=== PATIENT | male | born 1960 | race Two or more races ===

== ENCOUNTER 2017-02-20 10:58 | Emergency (ER) | payer OTHER ==
[~2017-02-20] VITALS: Ht 162.6 cm; Wt 76.0 kg
[2017-02-20 11:03] VITALS: Ht 162.6 cm; Wt 76.0 kg
--- NOTE | 2017-02-20 12:56 | RADRPT ---
PROCEDURE: XR Chest. CLINICAL INDICATION: Chest pain. TECHNIQUE: Single frontal view of the chest was obtained. COMPARISON: Chest x-ray 04/22/2015. FINDINGS: The soft tissues are normal. The bony elements are normal. The heart, cardiomediastinal silhouette and hilar structures are normal. The pulmonary vasculature is normal. There is a left-sided aorta. The lungs are clear. The costophrenic angles are normal. IMPRESSION: 1. Stable chest x-ray with no evidence of active cardiopulmonary disease. RPTAT:AAJJ Physician Marcus Date Time Electronically viewed and signed by Physician Marcus on 02/20/2017 12:55 /
[2017-02-20 13:22] LABS: ADD SCAN DIFF NO
[2017-02-20 13:44] LABS: ANION GAP 11 (8-16); BLOOD UREA NITROGEN 5 mg/dl (7-20); CALCIUM 8.4 mg/dl (8.4-10.2); CARBON DIOXIDE 25 mmol/L (21-31); CHLORIDE 106 mmol/L (97-110); CREATININE 0.59 mg/dl (0.61-1.24); GLUCOSE 93 mg/dl (70-220); POTASSIUM 3.7 mmol/L (3.5-5.1); SODIUM 138 mmol/L (135-144)
[2017-02-20 13:55] LABS: INR 1.16; PROTIME 14.8 Sec (12.2-14.2); PT RATIO 1.2
[2017-02-20 13:56] LABS: B-TYPE NATRIURETIC PEPTIDE 307 PG/ML (0-125); PARTIAL THROMBOPLASTIN TIME 30.2 Sec (25.0-35.0)
[2017-02-20 14:01] LABS: TROPONIN-I < 0.012 ng/ml (0.00-0.12)
[2017-02-20 14:27] LABS: ABNORMAL IP MESSAGE 1; HEMATOCRIT 16.3 % (42.0-52.0); MEAN CORPUSCULAR HEMOGLOBIN 19.1 pg (29.0-33.0); MEAN CORPUSCULAR VOLUME 70.9 fl (82.0-101.0); MEAN PLATELET VOLUME 9.9 fl (7.4-10.4); PLATELET COUNT 203 10^3/UL (140-415); RED CELL DISTRIBUTION WIDTH 19.6 % (11.5-14.5)
[2017-02-20 14:32] LABS: HEMOGLOBIN 4.4 g/dl (14.0-18.0)
[2017-02-20 15:05] LABS: ALBUMIN 3.8 g/dl (3.3-4.9); BILIRUBIN,INDIRECT 0.1 mg/dl (0-1.1); BILIRUBIN,TOTAL 0.1 mg/dl (0.2-1.3); TOTAL PROTEIN 6.3 g/dl (6.1-8.1)
[2017-02-20 15:20] LABS: ANISOCYTOSIS 1+; EOSINOPHILS # 0.1 10^3/ul (0.0-0.5); HYPOCHROMASIA 3+; MONOCYTE # 0.3 10^3/ul (0.3-0.9); NEUTROPHIL # 2.9 10^3/ul (1.6-7.5)
[2017-02-20 17:54] LABS: THYROID STIMULATING HORMONE 0.954 MIU/L (0.465-4.680)
--- NOTE | 2017-02-20 20:08 | ERA ---
ER Documentation Chief Complaint Date/Time DATE: 02/20/17 TIME: 20:04 Chief Complaint swelling feet x 2mos HPI 56-year-old male patient with a past medical history of pseudo-endo- cholinesterase disorder and hemorrhoids presents to the ED complaining of bilateral swelling of his legs and was sent here by Dr. Boone for further evaluation. Patient states that this has been going on for 1 month. Reports that he has had intermittent pitting edema of bilateral feet/ankles. States that it is better when he elevates his feet at night upon pillows. Reports that it is worse when he standing and walking. Reports a couple weeks prior to this incident he has had loss of equilibrium and slight lightheadedness. Denies any chest pain, shortness of breath, wheezing, orthopnea, dyspnea on exertion, abdominal pain, nausea, vomiting, diarrhea. ROS All systems reviewed and are negative except as per history of present illness. Medications Home Meds No Active Prescriptions or Reported Meds Allergies Allergies: Uncoded Allergies: PSEDOCHOLINESTEROSE (Allergy, Severe, FAMILY ALLERGY, 04/22/15) PMhx/Soc History of Surgery: Yes (T&A.APPY/) Anesthesia Reaction: No Hx Neurological Disorder: No Hx Respiratory Disorders: No Hx Cardiac Disorders: No Hx Psychiatric Problems: No Hx Miscellaneous Medical Probl: No Hx Alcohol Use: Yes (4 X /WEEK) Hx Substance Use: No Hx Tobacco Use: Yes Smoking Status: Never smoker Physical Exam Vitals Vital Signs Date Time Temp Pulse Resp B/P Pulse Ox O2 Delivery O2 Flow Rate FiO2 02/20/17 21:20 98.6 88 18 127/69 100 Room Air 02/20/17 20:05 98.9 89 20 142/89 100 Room Air 02/20/17 18:30 98.1 79 18 119/74 98 Room Air 02/20/17 17:42 98.0 91 18 117/71 99 Room Air 02/20/17 15:03 98.0 93 18 123/67 98 Room Air 02/20/17 11:03 98.1 90 18 105/56 99 Physical Exam Const: Rib-pvj-akylityeq, well-nourished. In no acute distress. Head: Atraumatic, normocephalic Eyes: Normal Conjunctiva without injection. No purulent discharge. ENT: Normal external ear, nose. Moist oropharynx without tonsillar exudates. Non -erythematous pharynx. Uvula midline. No drooling. No trismus. Neck: No cervical midline tenderness. Full range of motion. No meningismus. No cervical lymphadenopathy. No JVD. Resp: Clear to auscultation bilaterally. No wheezing, rhonchi, rales, or crackles. No accessory muscle use. No retractions. Cardio: Regular rate and rhythm. No murmurs, rubs or gallops. Abd: Soft, nontender, non distended. Normal bowel sounds. No palpable masses. No rebound tenderness. No guarding. Negative McBurney's point. Negative psoas sign. Negative obturator sign. Skin: No petechiae or rashes Back: No midline tenderness. No CVA tenderness. Ext: No cyanosis. 2+ pitting edema noted bilaterally. No warmth to touch. No erythema noted. Neurovascularly intact. Neur: Awake and alert. Normal gait. Normal coordination. Psych: Normal Mood and Affect Result Diagram: 02/20/17 1415 02/20/17 1305 Results 24 hrs Laboratory Tests Test 02/20/17 13:05 02/20/17 14:15 02/21/17 09:32 Prothrombin Time 14.8Sec Prothrombin Time Ratio 1.2 INR International Normalized Ratio 1.16 Activated Partial Thromboplast Time 30.2Sec Sodium Level 138mmol/L Potassium Level 3.7mmol/L Chloride Level 106mmol/L Carbon Dioxide Level 25mmol/L Anion Gap 11 Blood Urea Nitrogen 5mg/dl Creatinine 0.59mg/dl Glucose Level 93mg/dl Calcium Level 8.4mg/dl Troponin I < 0.012ng/ml B-Type Natriuretic Peptide 307PG/ML White Blood Count 5.310^3/ul Red Blood Count 2.3010^6/ul Hemoglobin 4.4g/dl Hematocrit 16.3% Mean Corpuscular Volume 70.9fl Mean Corpuscular Hemoglobin 19.1pg Mean Corpuscular Hemoglobin Concent 27.0g/dl Red Cell Distribution Width 19.6% Platelet Count 22113^3/UL Mean Platelet Volume 9.9fl Neutrophils % 55.0% Lymphocytes % 37.0% Monocytes % 6.0% Eosinophils % 2.0% Neutrophils # 2.910^3/ul Lymphocytes # 2.010^3/ul Monocytes # 0.310^3/ul Eosinophils # 0.110^3/ul Hypochromasia 3+ Anisocytosis 1+ Total Bilirubin 0.1mg/dl Direct Bilirubin 0.00mg/dl Indirect Bilirubin 0.1mg/dl Aspartate Amino Transf (AST/SGOT) 45IU/L Alanine Aminotransferase (ALT/SGPT) 39IU/L Alkaline Phosphatase 74IU/L Total Protein 6.3g/dl Albumin 3.8g/dl Lipase 115U/L Thyroid Stimulating Hormone (TSH) 0.954MIU/L Lab Scanned Report BLOOD [id number] Procedures/MDM This is a 56-year-old male patient with a past medical history of pseudo-endo- cholinesterase disorder and hemorrhoids presents to the ED complaining of bilateral feet swelling and lightheadedness. Patient is afebrile and nontoxic- appearing. Patient has normal vital signs. Patient was further worked up with CBC, CMP, lipase, UA, BNP, troponin, EKG, CXR. CBC: No leukocytosis. No e/o of systemic infection. Hbg 4.4. This case was discussed with my supervising physician, Dr. Gonzalez who stated that patient can receive 3 units of packed red blood cells. CMP: No e/o severe acidosis, alkalosis, renal failure, diabetic ketoacidosis, liver disease Lipase within normal limits. Urine: No leukocyte esterase, no nitrites, no hematuria. Troponin is less than 0.012. BNP is 302. TSH 0.954 Chest x-ray is unremarkable for any cardio pulmonary diseases. EKG reviewed and interpreted by Dr. Gonzalez Rate/Rhythm: [Normal Sinus Rhythm] No ectopy, no ST elevations, normal axis. QRS, ST, T-waves: [No changes consistent w/ acute ischemia] Impression: [No evidence of ischemia or arrhythmia] Low suspicion for acute myocardial infarction, pneumothorax, pneumonia, cardiac tamponade, pulmonary embolism, AAA, aortic dissection, Boerhaave's syndrome, cardiac dysrhythmias,meningitis, intracranial bleed, seizure, stroke, TIA or other emergent conditions. This time when patient and daughter was told that patient had a hemoglobin of 4.4, daughter responded that patient had some dark stools intermittently for 2 weeks but stated that they are unsure if it is from the hemorrhoids. Patient will now be under the care of Dr. Gonzalez for further evaluation and treatment. Patient is awaiting for transfer to [facility]. Patient is hemodynamically stable. Departure Diagnosis: Primary Impression: Bilateral swelling of feet and ankles Additional Impression: Anemia Qualified Code: D64.9 - Anemia, unspecified type Condition: CHARLOTTE Weems PA-C Feb 20, 2017 20:08
--- NOTE | 2017-02-20 20:40 | QN ---
Documentation Comment The patient is a 56-year-old male, presenting to the ER because of lower extremity edema and generalized weakness for the last week. He had history of hemorrhoids. He has been standing a lot at work. He was seen by his physician a week ago. He denies syncope, near syncope, neck pain, chest pain, abdominal pain, vomiting, dysuria, diarrhea, polyuria and of bloody stool. He does not smoke or drink He was seen in ED 2 then sent to ED 1 for evaluation He was found to be severe anemia.. He was transfused 3 units of packed red blood cell ER. The etiology of severe anemia most likely due to hemorrhoids and /or gastrointestinal bleeding. He was recommended to be admitted to the hospital for further evaluation The differential diagnoses considered include but are not limited to gastritis, peptic ulcer disease, esophageal varices, Darleen-Walton tear, carcinoma, polyp , hemorrhoid, fissure, diverticulosis, angiodysplasia. I discussed the patient with the on-call physician Dr Orosco for his IPA, who accepted the patient to [facility] 6:30 PM Impression: Acute severe anemia Disposition: The patient declined admission The patient signed out AGAINST MEDICAL ADVICE. Risks, benefits, alternatives were explained to the patient. Risks include but not limited to and permanent disability. He was advised to see his physician immediately tomorrow for immediate referral to see gastroenterology NO CISNEROS MD Feb 20, 2017 20:40
[2017-02-20 21:20] VITALS: BP 127/69; PULSE 88; RESP 18; TEMP 98.6
[2017-02-22 14:08] LABS: WHITE BLOOD COUNT 5.3 10^3/ul (4.8-10.8)
== END 2017-02-20 21:22 | disposition left against medical advice (07) ==
LOC: FTE 10:58 → E/R 21:22
DX: M79.89 Other specified soft tissue disorders (principal); D64.9 Anemia, unspecified; R07.9 Chest pain, unspecified; Z87.891 Personal history of nicotine dependence
CPT/HCPCS: 36430; 71010; 80048; 80076; 83690; 83880; 84443; 84484; 85025; 85610; 85730; 86644; 86850; 86900; 86901; 86920; 93005; P9016; 36415

== ENCOUNTER 2017-06-03 23:34 | Emergency (ER) | payer OTHER ==
[~2017-06-03] VITALS: Ht 180.3 cm; Wt 67.5 kg
[2017-06-03 23:52] VITALS: Ht 180.3 cm; Wt 67.5 kg
[2017-06-04] MEDS ORDERED: PANTOPRAZOLE 40 MG INJ IV ONE (00:30)
--- NOTE | 2017-06-04 00:37 | ERA ---
ER Documentation Chief Complaint Date/Time DATE: 06/04/17 TIME: 00:35 Chief Complaint 2+ TBS GRAY BLOOD NOTED EVERY OTHER BM X 4 DAYS, MILDLY PALE & TIRED HPI Patient is a 56-year-old male who presents with rectal bleeding for 3 days. He reports having dark tarry stools for 3 days starting 8 days ago, but they resolved. 3 days ago he started having bloody stool without dark stools. He denies abdominal pain. He denies vomiting. He denies fever. The patient reports a history of GI bleed due to gastritis 3 months ago. He had an upper and lower endoscopy. He is currently taking ferrous sulfate. In April, his hemoglobin was 11. He drinks 6-7 drinks daily, but denies history of cirrhosis. He reports having chronic mild lower extremity edema. ROS All systems reviewed and are negative except as per history of present illness. Medications Home Meds Active Scripts Omeprazole* (Omeprazole*) 20 Mg Capsule., 20 MG PO DAILY, #14 CAP Prov:SAJI LOAIZA MD 06/04/17 Allergies Allergies: Uncoded Allergies: PSEDOCHOLINESTEROSE (Allergy, Severe, FAMILY ALLERGY, 04/22/15) PMhx/Soc Past medical history: Gastritis Past surgical history: Denies Social history: Drinks 6-7 drinks daily, no drugs, smokes cigarettes. History of Surgery: Yes (T&A.APPY/) Anesthesia Reaction: No Hx Neurological Disorder: No Hx Respiratory Disorders: No Hx Cardiac Disorders: No Hx Psychiatric Problems: No Hx Miscellaneous Medical Probl: No Hx Alcohol Use: Yes (4 X /WEEK) Hx Substance Use: No Hx Tobacco Use: Yes Smoking Status: Current every day smoker FmHx Family History: No coronary disease, No diabetes Physical Exam Vitals Vital Signs Date Time Temp Pulse Resp B/P Pulse Ox O2 Delivery O2 Flow Rate FiO2 06/04/17 02:30 97 18 108/68 100 Room Air 06/04/17 01:37 97 18 110/71 100 Room Air 06/03/17 23:52 98.1 102 18 106/71 100 Physical Exam Const: Alert, no acute distress Head: Atraumatic Eyes: Normal Conjunctiva, No pallor, no icterus ENT: Normal External Ears, Nose and Mouth.Mucous membranes moist Neck: Full range of motion..~ No meningismus. Resp: Clear to auscultation bilaterally, No wheezes, no rales Cardio: Regular rate and rhythm, no murmurs Abd: Soft, non tender, non distended. Normal bowel sounds Skin: No petechiae or rashes Back: No midline or flank tenderness Ext: No cyanosis,1+ edema to bilateral shins. Neur: Awake and alert Psych: Normal Mood and Affect Result Diagram: 06/04/17 0005 06/04/17 0005 Results 24 hrs Laboratory Tests Test 06/04/17 00:05 White Blood Count 7.810^3/ul Red Blood Count 4.3810^6/ul Hemoglobin 13.4g/dl Hematocrit 40.5% Mean Corpuscular Volume 92.5fl Mean Corpuscular Hemoglobin 30.6pg Mean Corpuscular Hemoglobin Concent 33.1g/dl Red Cell Distribution Width 17.4% Platelet Count 95156^3/UL Mean Platelet Volume 10.4fl Neutrophils % 49.0% Lymphocytes % 35.8% Monocytes % 11.3% Eosinophils % 2.6% Basophils % 0.9% Nucleated Red Blood Cells % 0.0/100WBC Neutrophils # 3.810^3/ul Lymphocytes # 2.810^3/ul Monocytes # 0.910^3/ul Eosinophils # 0.210^3/ul Basophils # 0.110^3/ul Nucleated Red Blood Cells # 0.010^3/ul Prothrombin Time 12.5Sec Prothrombin Time Ratio 1.0 INR International Normalized Ratio 0.93 Activated Partial Thromboplast Time 29.0Sec Sodium Level 142mmol/L Potassium Level 4.1mmol/L Chloride Level 109mmol/L Carbon Dioxide Level 28mmol/L Anion Gap 9 Blood Urea Nitrogen 6mg/dl Creatinine 0.57mg/dl Glucose Level 107mg/dl Calcium Level 8.3mg/dl Total Bilirubin 0.0mg/dl Direct Bilirubin 0.00mg/dl Indirect Bilirubin 0.0mg/dl Aspartate Amino Transf (AST/SGOT) 39IU/L Alanine Aminotransferase (ALT/SGPT) 38IU/L Alkaline Phosphatase 169IU/L Total Protein 6.3g/dl Albumin 2.7g/dl Globulin 3.60g/dl Albumin/Globulin Ratio 0.75 Current Medications Medications (Trade) Dose Ordered Sig/Osiel Route PRN Reason Start Time Stop Time Status Last Admin Dose Admin Pantoprazole (Protonix Iv) 40 mg ONCE ONCE IV 06/04/17 00:30 06/04/17 00:31 DC 06/04/17 00:30 Procedures/MDM EKG read by me: Time 0052, rate 99 Rhythm: Normal sinus [place]: Normal Intervals: Normal ST-T waves: T-wave flattening, no ischemic changes Ectopy: No Q-waves: No Impression: No evidence of ischemia or arrhythmia MDM: Patient is a 56-year-old male who presents with 1 week of rectal bleeding intermittently. He states that he sees a few ounces teaspoons of blood in the toilet after defecating. Symptoms are intermittent. He does report having black stools earlier in the week but this is resolved. Patient has history of gastritis with GI bleed. His hemoglobin is essentially normal and increased from prior in April. The patient denies history of cirrhosis, but has significant alcohol use and a low albumin. I suspect that he has underlying cirrhosis and may be having bleeding due to hemorrhoids. He has no evidence of coagulopathy. I advised him to follow-up with his PMD in the next 2-3 days for hemoglobin recheck and to return to the ER for large volume of bloody stool or for dark stools. He will need further GI and colorectal workup as an outpatient. I will prescribe him a two-week course of omeprazole in case of an element of gastritis. I counseled him on alcohol abstention. The patient denied feeling any lesions on the external anus, and given his history I did not feel that rectal exam was would contribute significantly to medical decision -making. Departure Diagnosis: Primary Impression: Rectal bleeding Additional Impression: Hypoalbuminemia Condition: SAJI Kruger MD Jun 04, 2017 00:37
[2017-06-04 00:41] LABS: BASOPHIL # 0.1 10^3/ul (0.0-0.1); BASOPHILS % 0.9 % (0.0-2.0); EOSINOPHILS # 0.2 10^3/ul (0.0-0.5); EOSINOPHILS % 2.6 % (0.0-7.0); HEMATOCRIT 40.5 % (42.0-52.0); HEMOGLOBIN 13.4 g/dl (14.0-18.0); LYMPHOCYTES # 2.8 10^3/ul (0.8-2.9); LYMPHOCYTES % 35.8 % (15.0-51.0); MEAN CORPUSCULAR HEMOGLOBIN 30.6 pg (29.0-33.0); MEAN CORPUSCULAR HGB CONC 33.1 g/dl (32.0-37.0); MEAN CORPUSCULAR VOLUME 92.5 fl (82.0-101.0); MEAN PLATELET VOLUME 10.4 fl (7.4-10.4); MONOCYTE # 0.9 10^3/ul (0.3-0.9); MONOCYTES % 11.3 % (0.0-11.0); NEUTROPHIL # 3.8 10^3/ul (1.6-7.5); PLATELET COUNT 265 10^3/UL (140-415); RED BLOOD COUNT 4.38 10^6/ul (4.70-6.10); RED CELL DISTRIBUTION WIDTH 17.4 % (11.5-14.5); WHITE BLOOD COUNT 7.8 10^3/ul (4.8-10.8)
[2017-06-04 00:51] LABS: INR 0.93; PROTIME 12.5 Sec (12.2-14.2)
[2017-06-04 00:58] LABS: ALBUMIN 2.7 g/dl (3.3-4.9); ALBUMIN/GLOBULIN RATIO 0.75; CALCIUM 8.3 mg/dl (8.4-10.2); CREATININE 0.57 mg/dl (0.61-1.24); POTASSIUM 4.1 mmol/L (3.5-5.1); TOTAL PROTEIN 6.3 g/dl (6.1-8.1)
[2017-06-04] MEDS ORDERED: OMEP20CA16 PO (01:37)
[2017-06-04 02:30] VITALS: BP 108/68; PULSE 97; RESP 18
== END 2017-06-04 02:32 | disposition home or self-care (01) ==
LOC: E/R 23:34
DX: K62.5 Hemorrhage of anus and rectum (principal); R77.0 Abnormality of albumin; F17.210 Nicotine dependence, cigarettes, uncomplicated; R00.2 Palpitations
CPT/HCPCS: 36415; 80053; 85025; 85610; 85730; 86850; 86900; 86901; 93005; 96374; C9113; Z7502

== ENCOUNTER 2017-08-01 16:26 | Emergency (ER) | payer OTHER ==
[~2017-08-01] VITALS: Wt 60.0 kg
[~2017-08-01 16:26] MED LIST: OMEP20CA16 PO
[2017-08-01 16:38] VITALS: Wt 60.0 kg
[2017-08-01] MEDS ORDERED: SODIUM CHLORIDE 0.9% 1L BAG IV* STA (16:47)
--- NOTE | 2017-08-01 17:11 | RADRPT ---
PROCEDURE: XR Chest. CLINICAL INDICATION: Shortness of breath. TECHNIQUE: Single frontal view. COMPARISON: 02/20/2017. FINDINGS: The lungs are clear. The heart size is normal. There is no pleural effusion. There is no pneumothorax. IMPRESSION: 1. Normal chest radiograph. 2. No change from 02/20/2017. RPTAT: QQ .Vasquez Turner MD, MD Date Time Electronically viewed and signed by .Vasquez Turner MD, MD on 08/01/2017 17:11 .R/
[2017-08-01 17:16] LABS: BASOPHIL # 0.1 10^3/ul (0.0-0.1); BASOPHILS % 0.5 % (0.0-2.0); EOSINOPHILS % 0.3 % (0.0-7.0); HEMATOCRIT 36.2 % (42.0-52.0); HEMOGLOBIN 13.2 g/dl (14.0-18.0); LYMPHOCYTES # 1.7 10^3/ul (0.8-2.9); MEAN CORPUSCULAR HEMOGLOBIN 34.1 pg (29.0-33.0); MEAN CORPUSCULAR HGB CONC 36.5 g/dl (32.0-37.0); MEAN CORPUSCULAR VOLUME 93.5 fl (82.0-101.0); MEAN PLATELET VOLUME 11.3 fl (7.4-10.4); MONOCYTE # 0.8 10^3/ul (0.3-0.9); MONOCYTES % 7.6 % (0.0-11.0); NEUTROPHIL # 8.1 10^3/ul (1.6-7.5); PLATELET COUNT 178 10^3/UL (140-415); RED BLOOD COUNT 3.87 10^6/ul (4.70-6.10); RED CELL DISTRIBUTION WIDTH 13.4 % (11.5-14.5); WHITE BLOOD COUNT 10.9 10^3/ul (4.8-10.8)
[2017-08-01 17:35] LABS: ALANINE AMINOTRANSFERASE 96 IU/L (13-69); ALBUMIN/GLOBULIN RATIO 0.76; ALKALINE PHOSPHATASE 283 IU/L (42-121); ANION GAP 16 (8-16); ASPARTATE AMINO TRANSFERASE 166 IU/L (15-46); BILIRUBIN,INDIRECT 0.8 mg/dl (0-1.1); BLOOD UREA NITROGEN 7 mg/dl (7-20); CALCIUM 7.4 mg/dl (8.4-10.2); CARBON DIOXIDE 27 mmol/L (21-31); CHLORIDE 87 mmol/L (97-110); GLUCOSE 100 mg/dl (70-220); SODIUM 127 mmol/L (135-144); TOTAL PROTEIN 6.9 g/dl (6.1-8.1)
[2017-08-01 17:38] LABS: INR 1.11; PROTIME 14.3 Sec (12.2-14.2); PT RATIO 1.1
[2017-08-01 17:39] LABS: PARTIAL THROMBOPLASTIN TIME 31.8 Sec (25.0-35.0)
[2017-08-01 17:44] LABS: POTASSIUM 2.5 mmol/L (3.5-5.1)
[2017-08-01 17:46] LABS: TROPONIN-I < 0.012 ng/ml (0.00-0.12)
[2017-08-01] MEDS ORDERED: ONDANSETRON 4 MG INJ IV STA (17:57)
[2017-08-01] MEDS ORDERED: POTASSIUM CHLORIDE (SR) 20 MEQ TAB PO STA (17:58)
--- NOTE | 2017-08-01 18:23 | RADRPT ---
PROCEDURE: Right upper quadrant ultrasound CLINICAL INDICATION: Abnormal liver function TECHNIQUE: Multiple real-time images were acquired of the patient's abdomen and right retroperiton eum utilizing a high resolution transducer. COMPARISON: None FINDINGS: The liver is increased in echogenicity and measures 20.1 cm. No focal hepatic masses are seen. The gallbladder is physiologically distended. There is no evidence of gallstones, gallbladder wall thi ckening, or pericholecystic fluid. The intra and extrahepatic bile ducts are normal in caliber. Th e common bile duct measures 3.6 mm. Midline images demonstrate the pancreas head to be normal in echogenicity without obvious inflammato ry change. The body and tail are suboptimally seen. Survey views of the right kidney demonstrate no evidence of hydronephrosis or renal calculi. The ri ght kidney measures 10.9 cm. IMPRESSION: 1. No evidence of cholelithiasis or acute cholecystitis. 2. No biliary duct dilatation. 3. Fatty liver. 4. Hepatomegaly RPTAT: HH .Jono Nina MD, Date Time Electronically viewed and signed by .Jono Nina MD, on 08/01/2017 18:23 .W/
--- NOTE | 2017-08-01 18:33 | ERD ---
ER Documentation Chief Complaint Chief Complaint lightheadedness, fatigue, weakness, hypotension HPI Over the last several days this 57-year-old male is been feeling increasingly lightheaded and weak with fatigue. Checked his blood pressure at home he was significantly hypotensive with a systolic in the 70s. He also has had nausea and has been dry heaving. States that a couple times some water like fluid came out. Denies any pain in any part of his body. Does not have shortness of breath. ROS All systems reviewed and are negative except as per history of present illness. Medications Home Meds Active Scripts Omeprazole* (Omeprazole*) 20 Mg Capsule., 20 MG PO DAILY, #14 CAP Prov:SAJI LOAIZA MD 06/04/17 Allergies Allergies: Uncoded Allergies: PSEDOCHOLINESTEROSE (Allergy, Severe, FAMILY ALLERGY, 04/22/15) PMhx/Soc History of Surgery: Yes (T&A.APPY/) Anesthesia Reaction: No Hx Neurological Disorder: No Hx Respiratory Disorders: No Hx Cardiac Disorders: No Hx Psychiatric Problems: No Hx Miscellaneous Medical Probl: No Hx Alcohol Use: Yes (4 X /WEEK) Hx Substance Use: No Hx Tobacco Use: Yes Smoking Status: Never smoker Physical Exam Vitals Vital Signs Date Time Temp Pulse Resp B/P Pulse Ox O2 Delivery O2 Flow Rate FiO2 08/01/17 20:16 95 16 100/69 98 Room Air 08/01/17 17:01 Nasal Cannula 2 08/01/17 16:38 98.3 96 20 85/65 97 Physical Exam Const: [] Distress, appears uncomfortable Head: Atraumatic Eyes: Normal Conjunctiva EOMI, PERRLA ENT: Normal External Ears, Nose and Mouth. Neck: Full range of motion..~ No meningismus. Resp: Clear to auscultation bilaterally Cardio: Regular rate and rhythm, no murmurs Abd: Soft, non tender, non distended. Normal bowel sounds Skin: No petechiae or rashes Back: No midline or flank tenderness Ext: No cyanosis, or edema distal pulses intact all 4 extremities Neur: Awake and alert and oriented 3, no focal deficits. Psych: Normal Mood and Affect Result Diagram: 08/01/17 1706 08/01/17 1706 Results 24 hrs Laboratory Tests Test 08/01/17 17:06 08/01/17 18:39 08/01/17 19:03 White Blood Count 10.910^3/ul Red Blood Count 3.8710^6/ul Hemoglobin 13.2g/dl Hematocrit 36.2% Mean Corpuscular Volume 93.5fl Mean Corpuscular Hemoglobin 34.1pg Mean Corpuscular Hemoglobin Concent 36.5g/dl Red Cell Distribution Width 13.4% Platelet Count 00407^3/UL Mean Platelet Volume 11.3fl Neutrophils % 75.0% Lymphocytes % 16.0% Monocytes % 7.6% Eosinophils % 0.3% Basophils % 0.5% Nucleated Red Blood Cells % 0.0/100WBC Neutrophils # 8.110^3/ul Lymphocytes # 1.710^3/ul Monocytes # 0.810^3/ul Eosinophils # 0.010^3/ul Basophils # 0.110^3/ul Nucleated Red Blood Cells # 0.010^3/ul Prothrombin Time 14.3Sec Prothrombin Time Ratio 1.1 INR International Normalized Ratio 1.11 Activated Partial Thromboplast Time 31.8Sec Sodium Level 127mmol/L Potassium Level 2.5mmol/L Chloride Level 87mmol/L Carbon Dioxide Level 27mmol/L Anion Gap 16 Blood Urea Nitrogen 7mg/dl Creatinine 0.90mg/dl Glucose Level 100mg/dl Lactic Acid Level 3.8mmol/L 2.7mmol/L Calcium Level 7.4mg/dl Total Bilirubin 1.0mg/dl Direct Bilirubin 0.20mg/dl Indirect Bilirubin 0.8mg/dl Aspartate Amino Transf (AST/SGOT) 166IU/L Alanine Aminotransferase (ALT/SGPT) 96IU/L Alkaline Phosphatase 283IU/L Troponin I < 0.012ng/ml Total Protein 6.9g/dl Albumin 3.0g/dl Globulin 3.90g/dl Albumin/Globulin Ratio 0.76 Urine Color YELLOW Urine Clarity CLEAR Urine pH 6.0 Urine Specific [place] 1.003 Urine Ketones NEGATIVEmg/dL Urine Nitrite NEGATIVEmg/dL Urine Bilirubin NEGATIVEmg/dL Urine Urobilinogen NEGATIVEmg/dL Urine Leukocyte Esterase NEGATIVELeu/ul Urine Hemoglobin NEGATIVEmg/dL Urine Glucose NEGATIVEmg/dL Urine Total Protein NEGATIVEmg/dl Current Medications Medications (Trade) Dose Ordered Sig/Osiel Route PRN Reason Start Time Stop Time Status Last Admin Dose Admin Sodium Chloride (NS) 1,860 ml BOLUS OVER 2 HOURS STAT IV* 08/01/17 16:47 08/01/17 16:49 DC 08/01/17 17:24 Ondansetron HCl (Zofran Inj) 4 mg ONCE STAT IV 08/01/17 17:57 08/01/17 17:58 DC 08/01/17 18:12 Potassium Chloride 40 meq 40 meq ONCE STAT PO 08/01/17 17:58 08/01/17 17:59 DC 08/01/17 18:12 Potassium Chloride (KCl 20 MEQ/50 ML SW) 50 ml @ 25 mls/hr Q2H IVPB 08/01/17 20:30 08/02/17 02:29 08/01/17 21:02 Ondansetron HCl (Zofran Inj) 4 mg ER BRIDGE PRN IV NAUSEA AND/OR VOMITING 08/01/17 20:30 08/02/17 20:29 Acetaminophen (Tylenol Tab) 650 mg ER BRIDGE PRN PO MILD PAIN/FEVER 08/01/17 20:30 08/02/17 20:29 Procedures/MDM Patient with hypotension, hypokalemia and hyponatremia as well as lactic acidosis without any evident source of infection. Septic workup was performed which found these multiple abnormalities however it did not elucidate any source of infection. Patient has no fevers or tachycardia. Hypotension was improved with fluid administration. No signs of acute cardiac ischemia and the patient has improving symptoms. Hyponatremia is possibly causing lightheadedness. He was given K-Dur as well as IV potassium repletion. He will be admitted to telemetry however his insurance States that he goes to [facility]. I spoke with . EKG interpretation: Normal sinus rhythm rate of 86, normal axis, no ST or T- wave changes concerning for acute ischemia, QTc of 495. Monitor interpretation: Normal sinus rhythm without arrhythmia Chest x-ray interpretation: See no acute process, no pulmonary edema, no infiltrate, no fractures. Care time >35 minutes: This includes treatment of hypotension, hyponatremia syndrome and hypokalemia and significant lactic acidosis, careful administration of fluids, consideration of central line and pressor use, IV potassium repletion, review of chart, multiple visits patient's bedside to reassess his neuro hemodynamic status, discussion with patient's admitting doctor with the patient himself. This does not include billable procedures. Departure Diagnosis: Primary Impression: Hypotension Additional Impressions: Hyponatremia syndrome Hypokalemia Condition: Serious ALYSSA WAGGONER DO Aug 01, 2017 18:33
[2017-08-01 19:56] LABS: ADD UMIC NO; UR ASCORBIC ACID NEGATIVE (NEGATIVE); UR BILIRUBIN (Dip) NEGATIVE (NEGATIVE); UR BLOOD (Dip) NEGATIVE (NEGATIVE); UR CLARITY CLEAR (CLEAR); UR COLOR YELLOW (YELLOW); UR GLUCOSE (Dip) NEGATIVE (NEGATIVE); UR KETONES (Dip) NEGATIVE (NEGATIVE); UR LEUKOCYTE ESTERASE (Dip) NEGATIVE Leu/ul (NEGATIVE); UR NITRITE (Dip) NEGATIVE (NEGATIVE); UR SPECIFIC GRAVITY (Dip) 1.003 (1.003-1.030); UR TOTAL PROTEIN (Dip) NEGATIVE (NEGATIVE); UR UROBILINOGEN (Dip) NEGATIVE (NEGATIVE)
[2017-08-01] MEDS ORDERED: ACETAMINOPHEN 325 MG TAB PO PRN (20:30)
[2017-08-01] MEDS ORDERED: ONDANSETRON 4 MG INJ IV PRN (20:30)
[2017-08-01] MEDS: POTASSIUM CHLORIDE 50 ML IVPB SCH ×2 (21:02→23:24)
[2017-08-01 21:30] VITALS: BP 111/84; PULSE 98; RESP 16
[2017-08-01] MEDS ORDERED: MULT1TAB54 PO (21:40)
[2017-08-01] MEDS ORDERED: FER325 PO (21:40)
== END 2017-08-02 02:14 | disposition short-term general hospital (02) ==
LOC: E/R 16:26
DX: I95.9 Hypotension, unspecified (principal); E87.1 Hypo-osmolality and hyponatremia; E87.6 Hypokalemia; R07.9 Chest pain, unspecified; Z87.891 Personal history of nicotine dependence
CPT/HCPCS: 36415; 71010; 76705; 80053; 81003; 83605; 84484; 85025; 85610; 85730; 87040; 87086; 93005; 96374; J2405; J3480; J7030; Z7502; Z7610

== ENCOUNTER 2017-12-20 08:56 | Emergency (ER) | END 2017-12-20 11:31 | disposition home or self-care (01) ==